=== PATIENT | female | born 1965 | race Caucasian/White ===

== ENCOUNTER 2016-10-14 17:12 | Inpatient (IN) | payer OTHER, MEDICARE ==
[~2016-10-14] VITALS: Ht 162.6 cm; Wt 84.8 kg
[~2016-10-14 17:12] MED LIST: ALLOPURINOL300 MG PO; ASPIR 8181 MG PO; DILAUDID4 MG PO; FOLIC ACID 1 MG PO; GILENYA0.5 MG PO; KLOR-CON M1010 MEQ PO; LEVOTHYROXIN0.088 MG PO; LISINOPRIL HCTZ1 TAB PO; MAGNESIUM OXID400 MG PO; PRISTIQ 50MG50 MG PO; PROTONIX 40MG T40 MG PO; VALACYCLOVIR1 GM PO; VESICARE 5MG5 MG PO; VITAB121000 PO; ZOFRAN4 M1 PO; [UNRECOGNIZED DRUG - CODE] PO
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
--- NOTE | 2016-10-14 17:27 | NUR ---
PT TAKEN TO XRAY
--- NOTE | 2016-10-14 17:41 | NUR ---
PT BACK FROM XRAY IV EST. PT STATES PAIN IS TOLERABLE AT THIS TIME WIHT ONLY THE JOSI
--- NOTE | 2016-10-14 17:59 | RADIOLOGY REPORT ---
EXAMINATION: 1. XR TIBIA AND FIBULA, RIGHT 2. XR ANKLE, RIGHT CLINICAL INFORMATION: Pain after fall COMPARISON: None TECHNIQUE: 2 views of the right tibia/fibula and 2 views of the right ankle were obtained. FINDINGS: Comminuted fracture of the distal fibula with approximately 1 cm foreshortening. Comminuted fracture of the medial malleolus. The posterior malleolus appears intact. Complete obliteration of the ankle mortise with medial displacement of the tibia. Prominent soft tissue swelling and subcutaneous emphysema. IMPRESSION: Comminuted fractures of the distal tibia and fibula with discontinuity of the ankle mortise. Subcutaneous emphysema suggests an open fracture. Cross-sectional imaging will likely be required once stable.
--- NOTE | 2016-10-14 18:20 | NUR ---
PA AWAITING CALL BACK FROM [facility] AT THIS TIME PT AND FAMILY AWARE
--- NOTE | 2016-10-14 18:39 | NUR ---
PTS LASHELL: [phone]
--- NOTE | 2016-10-14 18:45 | NUR ---
COUNSIOUS SEDATION STARTED SEE FLOW SHEET
[2016-10-14 19:19] LABS: ABSOLUTE BASOPHIL COUNT 0 /CUMM (0.0-0.2); ABSOLUTE EOSINOPHIL COUNT 0.1 /CUMM (0.0-0.7); ABSOLUTE GRANULOCYTE CT 6.7 /CUMM (1.4-6.5); ABSOLUTE LYMPH COUNT 0.2 /CUMM (1.2-3.4); ABSOLUTE MONOCYTE COUNT 0.6 /CUMM (0.10-0.60); BASOPHIL % 0 % (0.0-2.0); EOSINOPHIL % 0.7 % (0-5); GRANULOCYTE % 89.1 % (42.2-75.2); HEMATOCRIT 35.2 % (37-47); MEAN CORPUSCULAR HGB 32.4 PG (27.0-31.0); MEAN CORPUSCULAR HGB CONC 34.1 G/DL (33.0-37.0); MEAN CORPUSCULAR VOLUME 94.8 FL (81.0-99.0); MEAN PLATELET VOLUME 6.4 FL (7.4-10.4); PLATELET COUNT 207 /CUMM (130-400); RBC DISTRIBUTION WIDTH 14.3 % (11.5-14.5); RED BLOOD CELL CT 3.71 /CUMM (4.20-5.40); WHITE BLOOD CELL COUNT 7.6 /CUMM (4.8-10.8)
--- NOTE | 2016-10-14 19:21 | NUR ---
XRAY AT BEDSIDE
[2016-10-14 19:31] LABS: PT 9.7 SEC (9.4-12.5); PTT 27 SEC (25-37)
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
--- NOTE | 2016-10-14 19:48 | NUR ---
PT TAKEN TO OR.
--- NOTE | 2016-10-14 19:51 | RADIOLOGY REPORT ---
EXAMINATION: XR PORTABLE CHEST CLINICAL INFORMATION: Preop COMPARISON: None TECHNIQUE: Portable frontal view of the chest was obtained. 7:18 PM FINDINGS: No significant abnormality is noted involving the heart, lungs, mediastinum, bony thorax or soft tissues. IMPRESSION: No acute abnormality the chest.
--- NOTE | 2016-10-14 22:46 | Operative Report ---
Operative/Inv Procedure Report Surgery Date: 10/14/16 Name of Procedure: Irrigation and debridement of right ankle open fracture dislocation. Open reduction internal fixation right bimalleolar fracture and syndesmotic fixation Pre-Operative Diagnosis: Open fracture dislocation right ankle Post-Operative Diagnosis: Open fracture dislocation right ankle Estimated Blood Loss: less than 50ml Surgeon/Patents Examiner: RAFI KHAN,BRIGHT Blank Anesthesia: laryngeal mask airway Operative/Procedure Note Note: Patient was brought to the operating room and given a general anesthetic. She did receive 2 g of Kefzol antibiotics. A tourniquet was placed around her right upper thigh and a bump was placed on the right hip. Right leg was then prepped and draped in usual sterile fashion. The leg was exsanguinated tourniquet inflated to [address] for 90 minutes. Starting on the lateral side and incision was made over the fracture site the fracture was reduced and a one third tibial plate was affixed to the fracture on the lateral side. I was unable to use a lag screw secondary to the configuration of the fracture. There was some comminution. Intraoperative fluoroscopic pictures showed that the fibula was well reduced. An incision was then made over the medial malleolus this is where she had a small open puncture wound from the fracture site. The wound edges were debrided thoroughly pulsed irrigation lavage was carried out. The medial malleolus was cleared of debris and then reduced anatomically. Using the 40 cannulated screw set 2 K wires were placed in parallel into the medial malleolus reducing it anatomically. The appropriate drill was used and the appropriate length screws were used and under fluoroscopic pictures and showed that the mortise and the medial malleolus were perfectly reduced. I left one hole on the plate laterally and put a syndesmotic screw using 3 cortices with a long cortical screw. This was 1.5 cm above the joint line. At the end the procedure fluoroscopic pictures showed an anatomic ankle reduction thorough irrigation was carried out of both wounds the wounds were closed in a layered fashion a splint was placed on the ankle and the patient was sent back to recovery room in stable condition complications and the dictation by Dr. Godfrey thank you all instrument counts and final counts of supplies were normal.
--- NOTE | 2016-10-14 23:13 | Admission Core Measures ---
Admission Lab Results I reviewed the following labs: Laboratory Tests 10/15 1911 Chemistry Sodium (137 - 145 mmol/L) 140 Potassium (3.5 - 5.1 mmol/L) 3.7 Chloride (98 - 107 mmol/L) 104 Carbon Dioxide (22 - 30 mmol/L) 25 Anion Gap (5 - 16) 11 BUN (7 - 17 mg/dL) 24 H Creatinine (0.5 - 1.0 mg/dL) 1.0 Estimated GFR (>60 ml/min) 58 L BUN/Creatinine Ratio (7 - 25 %) 24.0 Glucose (65 - 99 mg/dL) 102 H Calcium (8.4 - 10.2 mg/dL) 8.9 Total Bilirubin (0.2 - 1.3 mg/dL) 0.7 AST (14 - 36 U/L) 24 ALT (9 - 52 U/L) 43 Alkaline Phosphatase (<127 U/L) 80 Total Protein (6.3 - 8.2 g/dL) 6.6 Albumin (3.5 - 5.0 g/dL) 4.1 Globulin (1.9 - 4.2 gm/dL) 2.5 Albumin/Globulin Ratio (1.1 - 2.2 %) 1.6 Coagulation PT (9.4 - 12.5 SEC) 9.7 INR (0.90 - 1.19) 0.92 APTT (25 - 37 SEC) 27 Hematology CBC w Diff NO MAN DIFF REQ WBC (4.8 - 10.8 /CUMM) 7.6 RBC (4.20 - 5.40 /CUMM) 3.71 L Hgb (12.0 - 16.0 G/DL) 12.0 Hct (37 - 47 %) 35.2 L MCV (81.0 - 99.0 FL) 94.8 MCH (27.0 - 31.0 PG) 32.4 H RDW (11.5 - 14.5 %) 14.3 Plt Count (130 - 400 /CUMM) 207 MPV (7.4 - 10.4 FL) 6.4 L Gran % (42.2 - 75.2 %) 89.1 H Lymphocytes % (20.5 - 51.1 %) 2.2 L Monocytes % (1.7 - 9.3 %) 8.0 Eosinophils % (0 - 5 %) 0.7 Basophils % (0.0 - 2.0 %) 0 L Absolute Granulocytes (1.4 - 6.5 /CUMM) 6.7 H Absolute Lymphocytes (1.2 - 3.4 /CUMM) 0.2 L Absolute Monocytes (0.10 - 0.60 /CUMM) 0.6 Absolute Eosinophils (0.0 - 0.7 /CUMM) 0.1 Absolute Basophils (0.0 - 0.2 /CUMM) 0 PUBS MCHC (33.0 - 37.0 G/DL) 34.1 Admission Meds I reviewed the following Meds: Current Medications Sig/Marylu Start time Last Medication Dose Stop Time Status Admin Allopurinol 300 MG DAILY 10/15 1000 UNVr (Zyloprim) Aspirin Buffered 162 MG DAILY 10/15 1000 UNVr (Ecotrin) Cefazolin Sodium 2 GM IQ8 10/15 0430 UNVr (Kefzol) 10/16 1629 N/A 1 UNIT (No Carrier) Cholecalciferol 400 IU DAILY 10/15 1000 UNVr (Vitamin D) Cyanocobalamin 1,000 MCG BID 10/15 1000 UNVr (Vitamin B12) Dextrose/Sodium 1,000 ML .Q10H 10/14 2300 UNVr Chloride (D5W-1/2 Normal Saline 1000ML) Folic Acid 1 MG DAILY 10/15 1000 UNVr (Folic Acid) Hydrochlorothiazide 25 MG DAILY 10/15 1000 UNVr (Hydrodiuril) Hydromorphone HCl 2 MG Q4P PRN 10/14 2315 UNVr (Dilaudid) Hydromorphone HCl 4 MG Q4P PRN 10/14 2315 UNVr (Dilaudid) Levothyroxine Sodium 0.088 MG DAILY AC 10/15 0700 UNVr (Synthroid) Lisinopril 20 MG DAILY 10/15 1000 UNVr (Prinivil) Magnesium Oxide 400 MG DAILY 10/15 1000 UNVr (Mag-Ox) Non-Formulary 0 SEE ADMIN CRITERIA 10/14 2315 UNVr Medication (NON FORMULARY) Omeprazole 40 MG DAILY AC 10/15 0700 UNVr (Prilosec) Ondansetron HCl 4 MG Q6P PRN 10/14 2300 UNVr (Zofran) Oxybutynin Chloride 5 MG DAILY 10/15 1000 UNVr (Ditropan) Potassium Chloride 40 MEQ DAILY 10/15 1000 UNVr (Klor) Sodium Chloride 500 ML BOLUS ONE 10/14 2300 AC 10/14 (Normal Saline 0.9%) 10/14 1657 [id number] Acute Coronary Syndrome Inclusion Criteria ACS Diagnosis No Inpatient Core Measures LDL Reminder: If No, please order W/I first 24hr of stay Congestive Heart Failure Inclusion Criteria CHF Diagnosis No Cerebrovascular accident Inclusion Criteria CVA/TIA Diagnosis No Inpatient Core Measures Bedside Swallow Eval Reminder: If BSE failed, place ST order Antithrombotic Reminder: Order Antithrombotic Medication by end of day 2 Antithrombotic Reminder: Document Reason Antithrombotic Not ordered by end of day 2 AFIB/Flutter Reminder: If Present, add to problem list AFIB/Flutter Reminder: Order Anticoag Medication for pts with AFIB/Flutter Atherosclerosis Reminder: If Present, add to problem list LDL Reminder: If No, please order W/I first 24hr of stay PT Order Reminder: If No, please order Venous thromboembolism Inpatient Core Measures VTE Risk Factors: Age > 40, No Risk Factors, Obesity, Surgery, Trauma major or lower ext No Mech VTE prophylaxis d/t No contraindications No VTE Pharm Prophylaxis d/t No contraindications Inclusion Criteria - Per Current guidelines, there needs to be overlap - treatment for the first 5 days of Warfarin therapy. - Parenteral Anticoagulation (IV or SC) needs to be - given along with Warfarin therapy. VTE Diagnosis No VTE Type NONE VTE Confirmed by (Test) NONE Problem List As ranked by this Provider includes Assessment & Plan 1. Dislocation, ankle HOME MEDS Home Med List Allopurinol 300 MG TAB 1 TAB PO DAILY UNKNOWN (Reported) Aspirin (Ecotrin) 81 MG TABLET.DR 2 TAB PO DAILY HEART HEALTH (Reported) CHOLECALCIFEROL (VITAMIN D3) (Vitamin D3) 5,000 UNIT TABLET 1 TAB PO DAILY SUPPLEMENT (Reported) Cyanocobalamin (Vitamin B-12) 1,000 MCG TABLET 1 TAB PO BID SUPPLEMENT ( Reported) FINGOLIMOD HCL (Gilenya) 0.5 MG CAPSULE 1 CAP PO DAILY MS (Reported) Folic Acid 1 MG TABLET 1 TAB PO DAILY FOLIC ACID SUPPLEMENT (Reported) Hydromorphone Hydrochloride (Dilaudid) 4 MG TAB 1 TAB PO Q4-6 PRN PAIN Levothyroxine Sodium (Levothyroxine) 0.088 MG TAB 1 TAB PO DAILY THYROID ( Reported) LISINOPRIL/HYDROCHLOROTHIAZIDE (Lisinopril-Hctz 20-25 MG Tab) 20 MG-25 MG TABLET 1 TAB PO DAILY BLOOD PRESSURE (Reported) Magnesium Oxide 400 MG TABLET 1 TAB PO DAILY SUPPLEMENT (Reported) Ondansetron (Zofran Odt) 4 MG TAB.RAPDIS 1 TAB PO Q4-6 PRN NAUSEA Pantoprazole Sodium (Protonix) 40 MG TABLET.DR 1 TAB PO DAILY GI (Reported) Potassium Chloride (Klor-Con M10) 10 MEQ TAB.ER.PRT 1 TAB PO BID SUPPLEMENT ( Reported) Solifenacin Succinate (Vesicare) 5 MG TABLET 1 TAB PO DAILY UNKNOWN (Reported ) VALACYCLOVIR HCL (Valacyclovir) 1 GM TAB 1 TAB PO TID HERPES ZOSTER Discontinued Medications Desvenlafaxine Succinate (Pristiq ER) 50 MG TAB.ER.24H 1 TAB PO EOD MENTAL HEALTH (Reported) Discontinued reason: Pt Decision, not taking
[2016-10-15 00:08] VITALS: BP 128/90
[2016-10-15 02:01] VITALS: BP 108/58
[2016-10-15 04:15] VITALS: BP 98/64
--- NOTE | 2016-10-15 07:31 | PN- Orthopedic ---
Subjective Subjective: Awake, alert No complaints this morning Pain is well controlled with IV tylenol Urinating without difficulty Has not been out of bed yet Objective Vital Signs and I&Os Vital Signs Date Time Temp Pulse Resp B/P B/P Pulse O2 O2 Flow FiO2 Mean Ox Delivery Rate 10/15 0415 97.6 76 18 98/64 97 Nasal Cannula 10/15 0201 97.4 92 18 108/58 97 / 0008 97.6 92 18 128/90 96 Nasal Cannula 10/14 1947 99.1 100 18 132/67 98 Room Air 10/14 1929 99.1 96 18 140/73 99 Room Air 10/14 1900 98.4 102 18 129/74 100 Nasal 2.0L Cannula 10/14 1845 105 18 131/80 98 Nasal 2.0L Cannula 10/14 1839 98.7 102 18 121/60 100 Nasal 2.0L Cannula 10/14 1715 106 20 147/66 99 Room Air Intake & Output 10/15 0800 10/15 0000 10/14 1600 10/14 0800 10/14 0000 10/13 1600 Intake Total 1040 30 Output Total 550 Balance 490 30 Intake, IV 800 Intake, Oral 240 30 Output, Urine 550 Patient 187 lb 187 lb Weight Weight Reported by Patient Measurement Method Physical Exam: afebrile SBP 98 this morning - no dizziness or lightheadedness All other vss General: alert and oriented times three Chest: clear anteriorly bilaterally, RRR Abd: soft, good bs Ext: lle - WNL rle - toes cool, good cap refill, positive sensate, the rest of the lower leg is wrapped so unable to examine but positive sensate, dressing clean and dry Current Medications: Current Medications Sig/Marylu Start time Last Medication Dose Route Stop Time Status Admin Acetaminophen 1,000 MG Q6H 10/15 0515 AC 10/15 N/A 1 UNIT IV 10/15 2322 0523 Allopurinol 300 MG DAILY 10/15 1000 AC PO Aspirin Buffered 162 MG DAILY 10/15 1000 AC PO Cefazolin Sodium 2 GM Q8H 10/15 0430 AC 10/15 N/A 1 UNIT IV 10/16 1259 0408 Cholecalciferol 400 IU DAILY 10/15 1000 AC PO Cyanocobalamin 1,000 MCG BID 10/15 1000 AC PO Dextrose/Sodium 1,000 ML .Q10H 10/14 2300 AC 10/14 Chloride IV 2357 Etomidate 5 MG ONCE ONE 10/14 1914 DC 10/14 IV 10/14 191 1850 Etomidate 0 .STK-MED ONE 10/14 1828 DC IV Etomidate 15 MG ONCE ONE 10/14 1815 DC 10/14 IV 10/14 181 1848 Folic Acid 1 MG DAILY 10/15 1000 AC PO Hydrochlorothiazide 25 MG DAILY 10/15 1000 AC PO Hydromorphone HCl 2 MG Q4P PRN 10/14 2315 AC PO Hydromorphone HCl 4 MG Q4P PRN 10/14 2315 AC PO Ibuprofen 800 MG ONCE ONE 10/14 1730 DC 10/14 PO 10/14 1731 1718 Ibuprofen 0 .STK-MED ONE 10/14 172 DC PO Levothyroxine Sodium 0.088 MG DAILY AC 10/15 0700 AC 10/15 PO 0524 Lisinopril 20 MG DAILY 10/15 1000 AC PO Magnesium Oxide 400 MG DAILY 10/15 1000 AC PO Morphine Sulfate 4 MG ONCE ONE 10/14 1914 DC 10/14 IV 10/14 191 1850 Morphine Sulfate 0 .STK-MED ONE 10/14 185 DC .ROUTE Non-Formulary 0 SEE ADMIN CRITERIA 10/14 2314 UNV Medication ANY Omeprazole 40 MG DAILY AC 10/15 0700 AC 10/15 PO 0524 Ondansetron HCl 4 MG Q6P PRN 10/14 2300 AC 10/14 IV 2356 Oxybutynin Chloride 5 MG DAILY 10/15 1000 AC PO Potassium Chloride 40 MEQ DAILY 10/15 1000 AC PO Sodium Chloride 500 ML BOLUS ONE 10/14 2299 DC 10/14 IV 10/14 2359 2257 Assessment/Plan Assessment/Plan 50 yo female s/p R ankle orif plan is for non weight bear to RLE PT pain management dc ivf asa 162mg po daily ancef for 5 doses post op for ppx - contaminated wound Core Measures/Miscellaneous Venous Thromboembolism VTE Risk Factors: Age > 40, Surgery VTE Contraindications: No Contraindications VTE Diagnosis: No VTE Type: NONE VTE Confirmed by (Test): NONE Beta Staci Is Beta Staci a Home Med? No Antibiotics Is Patient on Antibiotics? Yes If Yes: prophylaxis
--- NOTE | 2016-10-15 12:49 | RADIOLOGY REPORT ---
EXAMINATION: INTRAOPERATIVE FLUOROSCOPY AND SPOT FILMS CLINICAL INFORMATION: Open reduction internal fixation of right ankle fracture. COMPARISON: Right ankle films dated 10/14/2016. TECHNIQUE/FINDINGS: Intraoperative fluoroscopy was provided for the performance of an open reduction internal fixation of a comminuted distal tibial and fibular fracture. 7 spot films were acquired and are archived in PACS for review. Plate and screw fixation of distal fibular fracture and partially threaded screw fixation of medial malleolar fracture are documented at various stages. Final images demonstrate anatomic alignment of the tibial and fibular fractures. IMPRESSION: Anatomic alignment status post open reduction internal fixation of right tibial and fibular fractures.
[2016-10-15 15:21] VITALS: BP 110/68
--- NOTE | 2016-10-15 17:56 | PN- Orthopedic ---
Subjective Subjective: PATIENT POD#1 s/p right ankle ORIF and Iand d for open fracture dislocation doing well has some cervical stiffness from her fall.otherwise doing well. Objective Vital Signs and I&Os Vital Signs Date Time Temp Pulse Resp B/P B/P Pulse O2 O2 Flow FiO2 Mean Ox Delivery Rate / 1521 97.8 96 20 110/68 95 05/ 1316 98 Room Air 05/ 0916 98 Room Air 05/ 0837 76 98/64 05/ 0415 97.6 76 18 98/64 97 Nasal Cannula / 0201 97.4 92 18 108/58 97 05/ 0008 97.6 92 18 128/90 96 Nasal Cannula / 1947 99.1 100 18 132/67 98 Room Air / 1929 99.1 96 18 140/73 99 Room Air / 1900 98.4 102 18 129/74 100 Nasal 2.0L Cannula / 1845 105 18 131/80 98 Nasal 2.0L Cannula 10/14 1839 98.7 102 18 121/60 100 Nasal 2.0L Cannula Intake & Output 05/ 1600 05/04 0800 05/04 0000 05/03 1600 05/ 0800 05/03 0000 Intake Total 760 1040 30 Output Total 650 550 Balance 110 490 30 Intake, IV 160 800 Intake, Oral 600 240 30 Output, Urine 650 550 Patient 187 lb 187 lb Weight Weight Reported by Patient Measurement Method Physical Exam Extremities: in splint dry intact neuro intact toes mobile Assessment/Plan Assessment/Plan patient doing well needs PT continue antibiotics non weightbearing on the right foot and ankle x 6 weeks Core Measures/Miscellaneous Venous Thromboembolism VTE Risk Factors: Age > 40, Surgery VTE Contraindications: No Contraindications VTE Diagnosis: No VTE Type: NONE VTE Confirmed by (Test): NONE Beta Staci Is Beta Staci a Home Med? No Antibiotics Is Patient on Antibiotics? Yes If Yes: prophylaxis Attending MD Review Statement Attending Statement Attending MD Statement: examined this patient
[2016-10-15 21:40] VITALS: BP 116/60
--- NOTE | 2016-10-15 21:43 | NUR ---
PT ON SCHEDULED IV TYLENOL Q6 AND HAS ULTRAM ORDERED PRN. PT STATES SHE DOES NOT WANT ANY OPIODS OR IV PAIN MEDICATIONS DUE TO THE SIDE EFFECTS THAT HAPPEN TO HER WHEN GIVEN. PT RATES PAIN 6/10 TO NECK, L SHOULDER, AND R LEG. THIS RN EDUCATED PT ON PAIN REGIMEN AND ASKED PT IF SHE NEEDED SOMETHING IF WHAT WAS CURRENTLY ORDERED WAS NOT TAKING THE PAIN LEVEL OFF. PT STATES SHE IS OK AND IS GOING TO WAIT FOR THE SCHEDULED IV TYLENOL. WILL CONTINUE TO MONITOR.
[2016-10-16 06:34] VITALS: BP 114/70
[2016-10-16] MEDS ORDERED: RW (09:52)
[2016-10-16] MEDS ORDERED: TRAMADOL HCL50 M1 PO (09:55)
--- NOTE | 2016-10-16 10:19 | PN- Orthopedic ---
Subjective Subjective: Patient reporting increasing pain to bilateral upper extremities and neck s/p fall two days ago, has been ambulating with rolling walker, tolerates pt but is complaining of dizziness. Denies chest pain, shortness of breath and difficulty breathing. Denies nausea and vomitting. Objective Vital Signs and I&Os Vital Signs Date Time Temp Pulse Resp B/P B/P Pulse O2 O2 Flow FiO2 Mean Ox Delivery Rate 10/16 0844 80 116/70 10/16 0634 97.5 90 20 114/70 96 Room Air 10/15 2140 98.2 94 20 116/60 96 Room Air 10/15 1521 97.8 96 20 110/68 95 05/04 1316 98 Room Air Intake & Output 10/16 1600 10/16 0800 10/16 0000 10/15 1600 10/15 0800 10/15 0000 Intake Total 100 113 742 2885 30 Output Total 650 550 Balance 100 930 110 490 30 Intake, IV 100 230 160 800 Intake, Oral 700 600 240 30 Output, Urine 650 550 Patient 187 lb 187 lb Weight Weight Reported by Patient Measurement Method Physical Exam: General: Alert and oriented x3, no acute distress Cardiac: RRR, s1s2 Pulm: CTA bilaterally Extremities: Moves all extremities, distal sensation intact. Skin warm and well perfused. Toes mobile and cap refill brisk. Calves soft. Dressing intact and dry Assessment/Plan Assessment/Plan This is a 50 year old female, POD 2, s/p ORIF right ankle open fracture. PMH sig for htn, hypothyroid, ms, and gerd -PT cleared stairs today -Plan for discharge to home with home health services tomorrow am -Continue current pain regimen -Continue strict NWB with rolling walker, crutches were too difficult to use -Will d/w Dr. Godfrey Core Measures/Miscellaneous Venous Thromboembolism VTE Risk Factors: Age > 40, Surgery VTE Contraindications: No Contraindications VTE Diagnosis: No VTE Type: NONE VTE Confirmed by (Test): NONE Beta Staci Is Beta Staci a Home Med? No Antibiotics Is Patient on Antibiotics? Yes If Yes: prophylaxis
--- NOTE | 2016-10-16 10:21 | Patient Discharge Instructions ---
Discharge Instructions General Discharge Information You were seen/treated for: Right ankle open fracture You had these procedures: Open reduction with internal fixation of right ankle fracture Watch for these problems: Increasing pain, redness, warmth, swelling to right foot and ankle. Drainage of any type from incision. Fever greater than 101.5. Do not soak the wound: Yes Other wound care: Keep splint clean and dry Diet Continue normal diet: Yes Recommended Diet: Regular Activity Full Activity/No Limits: No Activity Self Limited: Yes Activity Limited to: No weight bearing Acute Coronary Syndrome Inclusion Criteria At DC or during hospital stay patient has or had the following: ACS DIAGNOSIS No Discharge Core Measures Meds if any: Prescribed or Continued at Discharge Meds if any: NOT Prescribed or Continued at Discharge Congestive Heart Failure Inclusion Criteria At DC or during hospital stay patient has or had the following: CHF DIAGNOSIS No Discharge Core Measures Meds if any: Prescribed or Continued at Discharge Meds if any: NOT Prescribed or Continued at Discharge Cerebrovascular accident Inclusion Criteria At DC or during hospital stay patient has or had the following: CVA/TIA Diagnosis No Discharge Core Measures Meds if any: Prescribed or Continued at Discharge Meds if any: NOT Prescribed or Continued at Discharge Venous thromboembolism Inclusion Criteria VTE Diagnosis No VTE Type NONE VTE Confirmed by (Test) NONE Discharge Core Measures - Per Current guidelines, there needs to be overlap - treatment for the first 5 days of Warfarin therapy. - If discharged on Warfarin prior to 5 days of - overlap therapy, the patient will need to be - assessed for post discharge needs including - *Post discharge parental anticoagulation - *Warfarin and/or parental anticoagulation education - *Follow up date to check INR post discharge At least 5 days overlap therapy as Inpatient No Meds if any: Prescribed or Continued at Discharge Note: Overlap Therapy is Warfarin and Anticoagulant Meds if any: NOT Prescribed or Continued at Discharge
--- NOTE | 2016-10-16 10:25 | Surgical Discharge Summary ---
Visit Information Visit Dates Admission Date: 10/14/16 Discharge Date: 10/17/16 History of Present Illness Chief Complaint: Right ankle pain s/p open fracture Medical History Blood Transfusion Hx: No Neurological: multiple sclerosis EENT: NONE Cardiovascular: hypertension, hyperlipidemia Respiratory: NONE Gastrointestinal: diverticulitis Hepatic: NONE Renal: BLADDER MESH Musculoskeletal: NONE Psychiatric: depression Endocrine: hypothyroidism Blood Disorders: NONE Cancer(s): NONE FENCE MAKER/Reproductive: NONE Other Medical Hx: Multiple sclerosis History of MRSA: No History of VRE: No History of CDIFF: No Isolation History: Standard Surgical History Pertinent Surgical History: non-contributory Psychosocial History Who Do You Live With? Spouse Services at Home: None What is Your Primary Language? Upper Sorbian Review of Systems: See H&P Hospital Course Course Attending Physician: BRIGHT GODFREY MD Primary Care Physician: AXEL KHAN,[facility] Course: Audrey was admitted to the hospital on 10/14/16 for an open reduction with internal fixation of an open right ankle fracture. She tolerated the procedure well and was transferred to a general surgical floor. There her vital signs remained stable and within normal limits and her neurovascular status remained intact. Her diet was advanced and tolerated and she voided spontaneously. Her pain was controlled with po pain medication. She was evaluated and treated by physical therapy and she was deemed appropriate for discharge to home with home health services. Complications: None Allergies: Coded Allergies: albumin human (From REBIF (WITH ALBUMIN)) (Severe, HIVES/SWELLING 10/14/16) dimethyl fumarate (From TECFIDERA) (Severe, FLU LIKE SYMPTOMS 10/14/16) glatiramer (copolymer 1) (From COPAXONE) (Severe, HIVES 10/14/16) interferon beta-1a (From REBIF (WITH ALBUMIN)) (Severe, HIVES/SWELLING 10/14/16) oxycodone (Severe, HIVES 10/14/16) Disposition Summary Disposition Principal Diagnosis: Right ankle fracture Additional Diagnosis: none Discharge Disposition: home health services Discharge Instructions General Discharge Information Code Status: Full Code Patient's Diet: Regular, advance as tolerated Patient's Activity: NWB to right ankle for 6 weeks Follow-Up Instructions/Appts: follow up with Dr. Godfrey in 1 week from date of surgery follow-up xray in 6 weeks Medications at Discharge Discharge Medications: Stop taking the following medications: Desvenlafaxine Succinate (Pristiq ER) 50 MG TAB.ER.24H ORAL Every other day Continue taking these medications: Pantoprazole Sodium (Protonix) 40 MG TABLET.DR 1 Tablet ORAL DAILY Aspirin (Ecotrin) 81 MG TABLET.DR 2 Tablet ORAL DAILY FINGOLIMOD HCL (Gilenya) 0.5 MG CAPSULE 1 Capsule ORAL DAILY LISINOPRIL/HYDROCHLOROTHIAZIDE (Lisinopril-Hctz 20-25 MG Tab) 20 MG-25 MG TABLET 1 Tablet ORAL DAILY Levothyroxine Sodium (Levothyroxine) 0.088 MG TAB 1 Tablet ORAL DAILY Solifenacin Succinate (Vesicare) 5 MG TABLET 1 Tablet ORAL DAILY Allopurinol (Allopurinol) 300 MG TAB 1 Tablet ORAL DAILY Folic Acid (Folic Acid) 1 MG TABLET 1 Tablet ORAL DAILY Cyanocobalamin (Vitamin B-12) 1,000 MCG TABLET 1 Tablet ORAL TWICE DAILY CHOLECALCIFEROL (VITAMIN D3) (Vitamin D3) 5,000 UNIT TABLET 1 Tablet ORAL DAILY Magnesium Oxide (Magnesium Oxide) 400 MG TABLET 1 Tablet ORAL DAILY Potassium Chloride (Klor-Con M10) 10 MEQ TAB.ER.PRT 1 Tablet ORAL TWICE DAILY Ondansetron (Zofran Odt) 4 MG TAB.RAPDIS 1 Tablet ORAL EVERY 4-6 HOURS as needed for NAUSEA Qty = 15 VALACYCLOVIR HCL (Valacyclovir) 1 GM TAB 1 Tablet ORAL THREE TIMES DAILY Days = 7 Hydromorphone Hydrochloride (Dilaudid) 4 MG TAB 1 Tablet ORAL EVERY 4-6 HOURS as needed for PAIN Qty = 15 Start taking the following new medications: Rolling Walker (Rolling Walker) UNIT Unit SEE INSTRUCTIONS Qty = 1 No Refills Instructions: Use as instructed. Tramadol HCl (Tramadol HCl) 50 MG TABLET 1 Tablet ORAL EVERY SIX HOURS NEEDED as needed for PAIN Qty = 30 No Refills Copies To: AXEL KHAN,RASHEED
[2016-10-16 13:46] VITALS: BP 140/72
[2016-10-16 21:47] VITALS: BP 106/50
[2016-10-17 06:51] VITALS: BP 100/62
--- NOTE | 2016-10-17 07:48 | PN- Orthopedic ---
See Addendum Subjective Subjective: Reports pain improves with tramadol. Cleared by PT for discharge to home yesterday. She is planning on staying with a friend for awhile. Out of bed with rolling walker. No dizziness. No shortness of breath. no chest pains. Reports baseline MS related paresthesias. Objective Vital Signs and I&Os Vital Signs Date Time Temp Pulse Resp B/P B/P Pulse O2 O2 Flow FiO2 Mean Ox Delivery Rate 10/17 0551 98.0 88 18 100/62 93 Room Air 10/16 2147 98.2 94 18 106/50 96 Room Air 10/16 1346 98.0 92 20 140/72 96 10/16 0844 80 116/70 Intake & Output 10/17 0000 10/16 1600 10/16 0810/16 0000 10/15 1600 Intake Total 150 700 650 100 930 760 Output Total 650 Balance 150 700 650 100 930 110 Intake, IV 50 100 230 160 Intake, Oral 150 700 600 700 600 Number 0 Bowel Movements Output, Urine 650 Physical Exam: General - alert and oriented x3, no acute distress Cardiac - s1s2. reg. Lungs - clear bilaterally extremities - warm bilaterally. right lower leg immobilized. toes fully mobile with brisk cap refill. sensation grossly intact and equal. dressing c/d/i. ice pack in place. Current Medications: Current Medications Sig/Marylu Start time Last Medication Dose Route Stop Time Status Admin Acetaminophen 650 MG Q4P PRN 10/15 1545 AC 10/17 PO 0543 Allopurinol 300 MG DAILY 10/15 1000 AC 10/16 PO 0842 Aspirin Buffered 162 MG DAILY 10/15 1000 AC 10/16 PO 0844 Cefazolin Sodium 2 GM Q8H 10/15 0430 DC 10/16 N/A 1 UNIT IV 10/16 1259 1240 Cholecalciferol 400 IU DAILY 10/15 1000 AC 10/16 PO 0842 Cyanocobalamin 1,000 MCG BID 10/15 1000 AC 10/16 PO 2037 Folic Acid 1 MG DAILY 10/15 1000 AC 10/16 PO 0844 Hydrochlorothiazide 25 MG DAILY 10/15 1000 AC 10/16 PO 0844 Ketorolac 15 MG Q8P PRN 10/16 0815 AC 10/16 Tromethamine IV 2342 Levothyroxine Sodium 0.088 MG DAILY AC 10/15 0700 AC 05 PO 0540 Lisinopril 20 MG DAILY 10/15 1000 AC 05 PO 0844 Magnesium Oxide 400 MG DAILY 10/15 1000 AC 05 PO 0844 Melatonin 5 MG AT BEDTIME 10/16 2200 AC 05 PO 2132 Omeprazole 40 MG DAILY AC 10/15 0700 AC 05 PO 0540 Ondansetron HCl 4 MG .STK-MED ONE 10/16 0752 DC IM 10/16 0753 Ondansetron HCl 4 MG Q6P PRN 10/14 2300 AC 10/16 IV 0756 Oxybutynin Chloride 5 MG DAILY 10/15 1000 AC 05 PO 0845 Patient Medication 1 ED .STK-MED ONE 10/16 1257 DC Teaching ED 10/16 1258 Potassium Chloride 40 MEQ DAILY 10/15 1000 AC 10/16 PO 0845 Tramadol HCl 50 MG Q4P PRN 10/15 1545 AC 10/16 PO 2037 Assessment/Plan Assessment/Plan This is a 50 year old female with hx of MS now POD#3, s/p ORIF right ankle open fracture pain controlled with tramadol cleared by PT for discharge to home (yesterday) rolling walker ready in her room VNS services arranged continue strict nwb with rolling walker d/c today with services will d/w Core Measures/Miscellaneous Venous Thromboembolism VTE Risk Factors: Age > 40, Surgery VTE Contraindications: No Contraindications VTE Diagnosis: No VTE Type: NONE VTE Confirmed by (Test): NONE Beta Staci Is Beta Staci a Home Med? No Antibiotics Is Patient on Antibiotics? Yes If Yes: prophylaxis
[2016-10-17 08:46] VITALS: BP 100/70
== END 2016-10-17 10:48 | disposition home health service (06) | DRG 494 ==
LOC: ERH 17:12 → ER-OR 17:43 → ERH 17:43 → PACUH 20:02 → 2NA 20:02 → PACUH 20:02 → CRI 22:56 → 2NA 23:53 → ENPENDDIS 10-17 07:56 → 2NA 10-17 10:48
PROVIDERS: Physician Assistant Medical; ADMIT Orthopaedic Surgery Sports Medicine
PROC: 0QSG04Z Reposition Right Tibia with Internal Fixation Device, Open Approach (ICD-10-PCS; principal; 2016-10-14)
PROC: 0QSJ04Z Reposition Right Fibula with Internal Fixation Device, Open Approach (ICD-10-PCS; principal; 2016-10-14)
PROC: 0QSGXZZ Reposition Right Tibia, External Approach (ICD-10-PCS; 2016-10-14)
PROC: 0QSJXZZ Reposition Right Fibula, External Approach (ICD-10-PCS; 2016-10-14)
DX: S82.841B Displaced bimalleolar fracture of right lower leg, initial encounter for open fracture type I or II (principal); G35 Multiple sclerosis; I10 Essential (primary) hypertension; M10.9 Gout, unspecified; W07.XXXA Fall from chair, initial encounter; Z91.81 History of falling; Y92.009 Unspecified place in unspecified non-institutional (private) residence as the place of occurrence of the external cause; Z79.82 Long term (current) use of aspirin; E78.5 Hyperlipidemia, unspecified; E03.9 Hypothyroidism, unspecified; F32.9 Major depressive disorder, single episode, unspecified
CPT/HCPCS: 2NAP; 73590-RT; 73600-RT; 73610-RT; 93005; 93010; 96374; 96375; 97116-GO; 97161-GP; 97530-GO; C1713; J0131; J0690; J1100; J1170; J2250; J2405; J3010; J3490; J7040; J7042

== ENCOUNTER 2016-11-28 11:05 | Emergency (ER) | payer OTHER ==
[~2016-11-28 11:05] MED LIST changes: +RW; +TRAMADOL HCL50 M1 PO
--- NOTE | 2016-11-28 12:33 | ED UPPER/LOWER EXTREMITY COMPL ---
History of Present Illness General Chief Complaint: Skin Rash/ Abcess Stated Complaint: RT LEG CELLULITIS Source: patient Exam Limitations: no limitations Vital Signs & Intake/Output Vital Signs & Intake/Output Vital Signs Date Time Temp Pulse Resp B/P B/P Pulse O2 O2 Flow FiO2 Mean Ox Delivery Rate 11/28 1331 97.8 90 17 110/68 98 Room Air 11/28 1229 Room Air 11/28 1110 97.6 85 16 107/75 98 Room Air Allergies Coded Allergies: albumin human (From REBIF (WITH ALBUMIN)) (Severe, HIVES/SWELLING 10/14/16) dimethyl fumarate (From TECFIDERA) (Severe, FLU LIKE SYMPTOMS 10/14/16) glatiramer (copolymer 1) (From COPAXONE) (Severe, HIVES 10/14/16) interferon beta-1a (From REBIF (WITH ALBUMIN)) (Severe, HIVES/SWELLING 10/14/16) oxycodone (Severe, HIVES 10/14/16) Reconcile Medications Allopurinol 300 MG TAB 1 TAB PO DAILY UNKNOWN (Reported) Aspirin (Ecotrin) 81 MG TABLET.DR 2 TAB PO DAILY HEART HEALTH (Reported) CHOLECALCIFEROL (VITAMIN D3) (Vitamin D3) 5,000 UNIT TABLET 1 TAB PO DAILY SUPPLEMENT (Reported) Cyanocobalamin (Vitamin B-12) 1,000 MCG TABLET 1 TAB PO BID SUPPLEMENT ( Reported) FINGOLIMOD HCL (Gilenya) 0.5 MG CAPSULE 1 CAP PO DAILY MS (Reported) Folic Acid 1 MG TABLET 1 TAB PO DAILY FOLIC ACID SUPPLEMENT (Reported) Hydromorphone Hydrochloride (Dilaudid) 4 MG TAB 1 TAB PO Q4-6 PRN PAIN Levothyroxine Sodium (Levothyroxine) 0.088 MG TAB 1 TAB PO DAILY THYROID ( Reported) LISINOPRIL/HYDROCHLOROTHIAZIDE (Lisinopril-Hctz 20-25 MG Tab) 20 MG-25 MG TABLET 1 TAB PO DAILY BLOOD PRESSURE (Reported) Magnesium Oxide 400 MG TABLET 1 TAB PO DAILY SUPPLEMENT (Reported) Ondansetron (Zofran Odt) 4 MG TAB.RAPDIS 1 TAB PO Q4-6 PRN NAUSEA Pantoprazole Sodium (Protonix) 40 MG TABLET.DR 1 TAB PO DAILY GI (Reported) Potassium Chloride (Klor-Con M10) 10 MEQ TAB.ER.PRT 1 TAB PO BID SUPPLEMENT ( Reported) Solifenacin Succinate (Vesicare) 5 MG TABLET 1 TAB PO DAILY UNKNOWN (Reported ) Tramadol HCl 50 MG TABLET 1 TAB PO Q6P PRN PAIN VALACYCLOVIR HCL (Valacyclovir) 1 GM TAB 1 TAB PO TID HERPES ZOSTER Triage Note: PT TO ED WITH RT LOWER LEG ?CELLULITIS. STATES SHE BROKE HER LEG OVER A MONTH AGO AND HAS A WOUND TO THAT AREA. STATES SHE SEES DR GARZA AT THE [facility]. STATES HER VISITING NURSE SUGGESTED FOR HER TO COME AND GET CHECKED OUT. Triage Nurses Notes Reviewed? yes HPI: 50F PMH HTN WITH RECENT ORIF OF RIGHT ANKLE FOR TIB/FIB FRACTURE, WITH LEFT LOWER EXTREMITY WOUND AT SURGERY SITE, WITH 2 DAYS OF WORSENING PAIN AND ERYTHEMA SURROUNDING THE WOUND. DENIES FEVER, CHILLS, LEG SWELLING,CHEST PAIN, SOB. NO DISCHARGE FROM WOUND. Past History Travel History Traveled to [place] past 21 day No Medical History Any Pertinent Medical History? see below for history Neurological: multiple sclerosis EENT: NONE Cardiovascular: hypertension, hyperlipidemia Respiratory: NONE Gastrointestinal: diverticulitis Hepatic: NONE Renal: BLADDER MESH Musculoskeletal: NONE Psychiatric: depression Endocrine: hypothyroidism Blood Disorders: NONE Cancer(s): NONE WEB MARKETING STRATEGIST/Reproductive: NONE Other Medical Hx: Multiple sclerosis History of MRSA: No History of VRE: No History of CDIFF: No Surgical History Surgical History: non-contributory Psychosocial History Who do you live with Spouse Services at Home None What is your primary language Maori Tobacco Use: Never used Family History Hx Contributory? No Review of Systems Review of Systems Constitutional: Reports: no symptoms. EENTM: Reports: no symptoms. Respiratory: Reports: no symptoms. Cardiovascular: Reports: no symptoms. Gastrointestinal/Abdominal: Reports: no symptoms. Genitourinary: Reports: no symptoms. Musculoskeletal: Reports: see HPI. Skin: Reports: see HPI. Neurological/Psychological: Reports: no symptoms. Hematologic/Endocrine: Reports: no symptoms. Immunological: Reports: no symptoms. All Other Systems: Reviewed and Negative Physical Exam Physical Exam General Appearance: well developed/nourished, no apparent distress, alert, awake , mild distress Head: atraumatic, normal appearance Ears, Nose, Throat: normal pharynx, normal ENT inspection Neck: normal inspection, supple Cardiovascular/Respiratory: regular rate/rhythm Gastrointestinal: NORMAL Back: normal inspection, normal range of motion Leg Left: normal range of motion, normal inspection Leg Right: 2CM ULCER WITH ESCHAR AND SURROUNDING ERYTHEMA EXTENDING 4CM AWAY FROM BORDERS, NO DRAINAGE, EXQUISITE TENDERNESS PRESENT, NO LEG SWELLING Progress Differential Diagnosis: arterial insufficiency, cellulitis, CHF, compartment syndrome, contusion, dislocation, DVT, fracture, gout, septic arthritis, sprain, tendon injury Plan of Care: Orders Procedure Date/time Status BLOOD CULTURE 11/28 1242 Active BLOOD CULTURE 11/28 1206 Active CBC WITHOUT DIFFERENTIAL 11/28 1206 Complete BASIC ELECTROLYTES PLUS BUN&CR 11/28 1206 Complete Current Medications Sig/Marylu Start time Last Medication Dose Stop Time Status Admin Lactobacillus 1 CAP ONCE ONE 11/28 1330 UNVr Acidophilus 11/28 1331 (Probiotic) Laboratory Tests 11/28/16 1218: Anion Gap 12, Estimated GFR > 60, BUN/Creatinine Ratio 21.1, CBC w Diff NO MAN DIFF REQ, RBC 3.62 L, MCV 93.9, MCH 31.8 H, RDW 14.0, MPV 6.7 L, Gran % 81.3 H, Lymphocytes % 5.2 L, Monocytes % 10.8 H, Eosinophils % 2.5, Basophils % 0.2 , Absolute Granulocytes 5.0, Absolute Lymphocytes 0.3 L, Absolute Monocytes 0.7 H, Absolute Eosinophils 0.2, Absolute Basophils 0, PUBS MCHC 33.9 Microbiology 11/28 1238 BLOOD: Blood Culture - RECD 11/28 1218 BLOOD: Blood Culture - RECD 11/28 1209 BLOOD: Blood Culture - CAN Cancelled: Cancelled via OE: SHOULD BE 2ND ANKLE X-RAY SHOWS NORMAL HARDWARE. WBC 6.2. AFEBRILE, NO SIGNS OF SYSTEMIC INFECTION. WILL START AUGMENTIN FOR WORSENING ERYTHEMA AND PAIN DUE TO CELLULITIS SURROUNDING ULCER. WILL FOLLOW UP IN WOUND CARE CENTER ON Wednesday. (ALBERTO KHAN,SONAM) Diagnostic Imaging: Viewed by Me: Radiology Read. Discussed w/RAD: Radiology Read. Radiology Impression: PATIENT: YOSVANY MCARTHUR PRESENT AGE: 50 PATIENT ACCOUNT NO: [id number] : 63 LOCATION: [facility] ORDERING PHYSICIAN: SONAM DOMINGUEZ MD SERVICE DATE: 11/28/16-1206 EXAM TYPE : RAD - XRY-TWO VIEW RIGHT ANKLE EXAMINATION: XR ANKLE, RIGHT CLINICAL INFORMATION: Cellulitis right ankle. Question hardware infection. COMPARISON: . TECHNIQUE: AP, lateral, and mortise views of the right ankle. FINDINGS: Surgical hardware remains in stable position with anatomic alignment of the right ankle. 2 surgical screws transfix the fracture the medial malleolus with a long sideplate and multiple screws present along the comminuted fracture of the distal fibula. Alignment the ankle mortise is anatomic. No hardware complication is seen. Early infection would not be visible on the plain films. There is a small joint effusion. IMPRESSION: Stable anatomic alignment status post ORIF. No hardware complication demonstrated. Early hardware infection would not be seen on plain film. Departure Departure Time of Disposition: 1330 Disposition: HOME OR SELF CARE Condition: Stable Clinical Impression Primary Impression: Cellulitis of right lower extremity Secondary Impressions: Ankle fracture, right, Chronic ulcer of right lower extremity Referrals: DEBBIE KHAN,HARSHA REYNA MD,RASHEED (PCP/Family) Additional Instructions: KEEP LEG ELEVATED. TYLENOL PRN FOR PAIN. CONTINUE AUGMENTIN FOR 7 DAYS. FOLLOW UP WITH WOUND CARE CENTER ON WEDNESDAY. Departure Forms: Customer Survey General Discharge Information Prescriptions: Current Visit Scripts Amoxicillin/Clavulanate Potass (Amox-Clav 875-125 MG Tablet) 1 TAB PO BID #20 TAB Lactobacillus Acidophilus (Probiotic) 1 CAP PO TID #30 CAP
[2016-11-28 12:38] LABS: ABSOLUTE BASOPHIL COUNT 0 /CUMM (0.0-0.2); ABSOLUTE EOSINOPHIL COUNT 0.2 /CUMM (0.0-0.7); ABSOLUTE LYMPH COUNT 0.3 /CUMM (1.2-3.4); ABSOLUTE MONOCYTE COUNT 0.7 /CUMM (0.10-0.60); BASOPHIL % 0.2 % (0.0-2.0); EOSINOPHIL % 2.5 % (0-5); GRANULOCYTE % 81.3 % (42.2-75.2); MEAN CORPUSCULAR HGB 31.8 PG (27.0-31.0); MEAN CORPUSCULAR HGB CONC 33.9 G/DL (33.0-37.0); MEAN CORPUSCULAR VOLUME 93.9 FL (81.0-99.0); MEAN PLATELET VOLUME 6.7 FL (7.4-10.4); PLATELET COUNT 221 /CUMM (130-400); RED BLOOD CELL CT 3.62 /CUMM (4.20-5.40); WHITE BLOOD CELL COUNT 6.2 /CUMM (4.8-10.8)
--- NOTE | 2016-11-28 13:22 | RADIOLOGY REPORT ---
EXAMINATION: XR ANKLE, RIGHT CLINICAL INFORMATION: Cellulitis right ankle. Question hardware infection. COMPARISON: 10/14/16. TECHNIQUE: AP, lateral, and mortise views of the right ankle. FINDINGS: Surgical hardware remains in stable position with anatomic alignment of the right ankle. 2 surgical screws transfix the fracture the medial malleolus with a long sideplate and multiple screws present along the comminuted fracture of the distal fibula. Alignment the ankle mortise is anatomic. No hardware complication is seen. Early infection would not be visible on the plain films. There is a small joint effusion. IMPRESSION: Stable anatomic alignment status post ORIF. No hardware complication demonstrated. Early hardware infection would not be seen on plain film.
[2016-11-28 13:31] VITALS: BP 110/68
[2016-11-28] MEDS ORDERED: PROBIOTIC1 EACH PO (13:33)
[2016-11-28] MEDS ORDERED: AMOX-CLAV 875-1 EACH PO (13:33)
[2016-11-28] MEDS ORDERED: DUEXIS 800-26.1 EACH PO (13:57)
[2016-11-28] MEDS ORDERED: ALLOPURINOL300 M1 PO (13:58)
[2016-11-28] MEDS ORDERED: VITAMIN D31000 UNI1 PO (13:58)
[2016-11-28] MEDS ORDERED: ASPIRIN81 M4 PO (13:58)
[2016-11-28] MEDS ORDERED: FOLIC ACID1 M1 PO (13:59)
[2016-11-28] MEDS ORDERED: GILENYA0.5 M1 PO (13:59)
[2016-11-28] MEDS ORDERED: LEVOTHYROXINE88 MCG PO (13:59)
[2016-11-28] MEDS ORDERED: POTASSIUM CHLO20 ME2 PO (14:00)
[2016-11-28] MEDS ORDERED: MAGNESIUM OXID400 M1 PO (14:00)
[2016-11-28] MEDS ORDERED: LISINOPRIL-HCT1 EAC1 PO (14:00)
[2016-11-28] MEDS ORDERED: TRAMADOL HCL50 M1 PO (14:01)
[2016-11-28] MEDS ORDERED: RANITIDINE HCL150 MG PO (14:01)
[2016-11-28] MEDS ORDERED: VESICARE5 M1 PO (14:01)
== END 2016-11-28 13:46 ==
LOC: ERH 11:05
PROVIDERS: Internal Medicine
DX: S82.891D Other fracture of right lower leg, subsequent encounter for closed fracture with routine healing (principal); L03.115 Cellulitis of right lower limb; L97.919 Non-pressure chronic ulcer of unspecified part of right lower leg with unspecified severity
CPT/HCPCS: 73600-RT; 82436; 87040; 96374

== ENCOUNTER 2018-03-02 00:51 | Observation (INO) | payer OTHER ==
[~2018-03-02] VITALS: Ht 160 cm; Wt 83.9 kg
[~2018-03-02 00:51] MED LIST changes: +ALLOPURINOL300 M1 PO; +AMOX-CLAV 875-1 EACH PO; +ASPIRIN81 M4 PO; +DUEXIS 800-26.1 EACH PO; +FOLIC ACID1 M1 PO; +GILENYA0.5 M1 PO; +KEFLEX500 M1 PO; +LEVOTHYROXINE88 MCG PO; +LISINOPRIL-HCT1 EAC1 PO; +MAGNESIUM OXID400 M1 PO; +MORPHINE SULFAT15 M4 PO; +MS CONTIN15 M2 PO; +NYSTATIN100000 UNI PO; +OXACILLIN2 GM/50 M1 IV; +OXYBUTYNIN CHLOR5 M3 PO; +POTASSIUM CHLO20 ME2 PO; +PROBIOTIC1 EACH PO; +RANITIDINE HCL150 MG PO; +VESICARE5 M1 PO; +VITAMIN D31000 UNI1 PO
--- NOTE | 2018-03-02 13:59 | Operative Report ---
Operative/Inv Procedure Report Surgery Date: 03/02/18 Name of Procedure: Right ankle arthroscopically assisted ankle arthrodesis Pre-Operative Diagnosis: Posttraumatic arthritis right ankle Post-Operative Diagnosis: Posttraumatic arthritis right tibiotalar joint Estimated Blood Loss: scant Surgeon/Director Of Cardiopulmonary Services: Elif KHAN,Sean TANNER Anesthesia: general endotracheal tube IV Fluids: See anesthesia record Implants: Arthrex 6.5 cannulated screws Drains: None Specimens: None Tourniquet: 120 minutes Complications: None Condition: Stable Operative Indication: Patient is a 52-year-old female with posttraumatic arthritis of the tibiotalar joint on the right ankle. She failed conservative treatment is indicated for surgical arthrodesis. The risks and benefits the procedure discussed with the patient detailed the office and she was to proceed. Skills that hand is necessary and provided by physician assistant spa director Tommy Robbins made with camera positioning and component assembly and limb retraction throughout the case. Operative/Procedure Note Note: Once informed consent was obtained and the correct limb was identified the patient brought to the operating placed on table supine position. Administration of general endotracheal anesthesia the patient's right thigh had a tourniquet placed in the right lip leg was placed in a leg bates for surgical arthroscopy of the ankle. The right leg was then prepped and draped in usual sterile fashion. To begin the procedure standard arthroscopic portals were made for ankle arthroscopy. The medial portal was made just medial to the tibialis anterior tendon what using a lena and spread technique. Lateral portal was made lateral to the extensor tendons with care to avoid the superficial peroneal nerve. Again the portal was made with a lena and spread technique. There are scope was introduced into the joint through the lateral portal and diagnostic arthroscopy was carried out. The tibiotalar joint had severe degenerative changes with complete cartilage loss of a good portion of the talus and tibia. Through the medial portal shaving device was and introduced into the joint. Loose debris was removed with a 4.2 incisor shaver. Once this was done diagnostic arthroscopy was again carried out with a 20 one-point exam of the ankle joint being performed. Next we then began denuding of the cartilage of both the talus and the tibia. With a combination of curettes and a high-speed bone cutting device the talar dome had all of its articular cartilage removed and a layer of subchondral bone was removed as well to get to bleeding healthy bone. There was significant sclerosis of the lateral talar dome. We are able to get the device posterior as well across and over the talar dome. This was done using a combination of both portals in order to improve her ankles. Once this was done we then turned our attention to the tibial plafond surface. Using curettes again and the shaving device we are able to remove all the articular cartilage down to bleeding subchondral bone. Anterior aspect of the distal tibia also was shaved down. Once we had adequately debrided all the bone and had what we felt were good bleeding surfaces for fusion we remove the instruments. A targeting device from Arthrex was then used to place a screw from the medial tibia across the joint. C-arm fluoroscopy P confirm position of the screw in the AP and lateral planes. Once this was done we then percutaneously placed a guidewire for 6.5 Arthrex screws from medial to lateral into the talar dome and from the lateral tibia into the talar dome as well. Fluoroscopy in the AP and lateral planes confirmed excellent positioning of both guidewires in the ankle was reduced and compressed in the guidewires were placed across the joint. Guidewire length was confirmed in both planes and a 50 mm screw was placed across the joint from medial to lateral after it had been overdrilled and a 45 mm cannulated screw was placed from lateral to medial after the guidewire had been overdrilled. Excellent compression was obtained finally a third screw was placed from medial to the anterior talar neck for final fixation purposes again screw position was confirmed in the AP and lateral planes with fluoroscopy. A 55 mm screw was placed across the guidewire without complication. Final x-rays confirmed excellent position of the screws with excellent length. Fusion position was at excellent. The instruments removed and the arthroscope portals were irrigated with sterile saline. The portals were then closed with 3-0 nylon interrupted sutures. The stab incision for the screw placements were also closed with 3-0 nylon interrupted sutures. Sterile dressing felt was applied and the patient was awakened taken recovery in stable condition.
--- NOTE | 2018-03-02 16:22 | Patient Discharge Instructions ---
Discharge Instructions General Discharge Information You were seen/treated for: Post-traumatic arthritis right ankle You had these procedures: Surgery Date: 03/02/18 Name of Procedure: Right ankle arthroscopically assisted ankle arthrodesis Watch for these problems: FEVER>101.3, INCREASED PAIN, REDNESS/SWELLING/DRAINAGE, SHORTNESS OF BREATH, CHEST PAINS, DIZZINESS Call Surgeon to remove: Stitches Other wound care: PER 'S INSTRUCTIONS Special Instructions: USE CRUTCHES TO AMBULATE. NON WEIGHT BEARING TO OPERATIVE LEG Diet Continue normal diet: Yes Recommended Diet: Regular Activity Full Activity/No Limits: No Activity Self Limited: Yes Activity Limited to: No weight bearing Other activity limits: USE CRUTCHES TO AMBULATE Acute Coronary Syndrome Inclusion Criteria At DC or during hospital stay patient has or had the following: ACS DIAGNOSIS No Discharge Core Measures Meds if any: Prescribed or Continued at Discharge Meds if any: NOT Prescribed or Continued at Discharge Congestive Heart Failure Inclusion Criteria At DC or during hospital stay patient has or had the following: CHF DIAGNOSIS No Discharge Core Measures Meds if any: Prescribed or Continued at Discharge Meds if any: NOT Prescribed or Continued at Discharge Cerebrovascular accident Inclusion Criteria At DC or during hospital stay patient has or had the following: CVA/TIA Diagnosis No Discharge Core Measures Meds if any: Prescribed or Continued at Discharge Meds if any: NOT Prescribed or Continued at Discharge Venous thromboembolism Inclusion Criteria VTE Diagnosis No VTE Type NONE VTE Confirmed by (Test) NONE Discharge Core Measures - Per Current guidelines, there needs to be overlap - treatment for the first 5 days of Warfarin therapy. - If discharged on Warfarin prior to 5 days of - overlap therapy, the patient will need to be - assessed for post discharge needs including - *Post discharge parental anticoagulation - *Warfarin and/or parental anticoagulation education - *Follow up date to check INR post discharge At least 5 days overlap therapy as Inpatient No Meds if any: Prescribed or Continued at Discharge Note: Overlap Therapy is Warfarin and Anticoagulant Meds if any: NOT Prescribed or Continued at Discharge
[2018-03-02] MEDS ORDERED: DOCUSATE SODIU100 M3 PO (16:23)
[2018-03-02] MEDS ORDERED: VICODIN 5-3001 EACH PO (16:23)
--- NOTE | 2018-03-02 16:28 | Surg Short-stay <48hrs Dis Sum ---
Visit Information Visit Dates Admission Date: 03/02/18 Discharge Date: 03/03/18 Surgical Short Stay DC Summary Admission Diagnosis: Post-traumatic arthritis right ankle Final Diagnosis: Post-traumatic arthritis right ankle Procedure(s): Surgery Date: 03/02/18 Name of Procedure: Right ankle arthroscopically assisted ankle arthrodesis Summary/Significant Findings: Electively scheduled right ankle arthroscopically assisted ankle arthrodesis on 03/02/18 by , for history of post-traumatic arthritis right ankle. Placed in observation status overnight due to uncontrolled pain and nausea. Seen and evulated by PT for crutch training, as she is non-weight bearing status after surgery. Discharged to home once pain controlled, tolerating a diet, and stable for discharge. Condition at Discharge: stable Discharge Disposition: home or self care Discharge instructions provided to patient/family: Yes Post discharge follow-up plan: 2 week follow up with non-weight bearing status Copies to: Madison KHAN,Vipul
--- NOTE | 2018-03-02 16:32 | PN- Orthopedic ---
Subjective Subjective: POST-OP NOTE Currently in PACU reporting ongoing pain and nausea. Not yet out of bed. Denies dizziness. No shortness of breath. No chest pains. Being placed in observation status overnight until she is tolerating food and pain is controlled. She states percocet makes her sick, but she can tolerate vicodin or ultram. Objective Vital Signs and I&Os pacu flowsheet reviewed. vss. Physical Exam: General - alert & oriented x 3. sleepy. no acute distress. Lungs - clear bilaterally. no w/r/r. Cardiac - s1s2. reg. Abdomen - soft. nontender. Extremities - warm bilaterally. right lower leg immobilized. calves soft and nontender. nvi. Current Medications: Current Medications Sig/Marylu Start time Last Medication Dose Route Stop Time Status Admin Acetaminophen 1,000 MG Q6P PRN 03/02 161 UNVr N/A 1 UNIT IV Allopurinol 300 MG DAILY 03/03 09 UNVr PO Aspirin Buffered 81 MG DAILY 03/03 900 UNVr PO Cefazolin Sodium 2,000 MG ONCE 03/02 0000 NR IV 03/02 2359 Cholecalciferol 2,000 IU DAILY 03/03 09 UNVr PO Dextrose/Sodium 1,000 ML Q10H 03/02 1630 UNVr Chloride IV Docusate Sodium 100 MG BID 03/02 2100 UNVr PO Famotidine 20 MG BID 03/02 2100 UNVr PO Fentanyl Citrate 0 .STK-MED ONE 03/02 1017 DC .ROUTE Folic Acid 1 MG DAILY 03/03 0900 UNVr PO Hydrochlorothiazide 12.5 MG DAILY 03/03 09 UNVr PO Hydrocodone Bitart/ 1 TAB Q4-6 PRN PRN 03/02 161 UNVr Acetaminophen PO Hydrocodone Bitart/ 2 TAB Q4-6 PRN PRN 03/02 1615 UNVr Acetaminophen PO Hydromorphone HCl 0 .STK-MED ONE 03/02 1321 DC .ROUTE Levothyroxine Sodium 0.088 MG DAILY AC 03/03 0700 UNVr PO Lisinopril 10 MG DAILY 03/03 0900 UNVr PO Magnesium Oxide 400 MG BID 03/02 2100 UNVr PO Metoclopramide HCl 0 .STK-MED ONE 03/02 1419 DC .ROUTE Midazolam HCl 0 .STK-MED ONE 03/02 1017 DC .ROUTE Midazolam HCl 0 .STK-MED ONE 03/02 0949 DC .ROUTE Morphine Sulfate 2 MG Q4-6 PRN PRN 03/02 1630 UNVr IV Ondansetron HCl 4 MG Q6P PRN 03/02 1615 UNVr IV Ondansetron HCl 0 .STK-MED ONE 03/02 1409 DC .ROUTE Oxybutynin Chloride 5 MG BID 03/02 2100 UNVr PO Potassium Chloride 20 MEQ DAILY 03/03 0900 UNVr PO Assessment/Plan Assessment/Plan This 52 year old female with hx htn, gerd, gout, hypothyroidism, is POD#0 s/p right ankle arthroscopically assisted ankle arthrodesis for post-traumatic arthritis right ankle, being placed in observation status due to ongoing nausea and uncontrolled pain advance diet as tolerated continue iv fluids until tolerating clears try vicodin / morphine prn pain control resume home meds, including asa 81mg daily PT eval - nwb, crutch training likely d/c home tomorrow once tolerating diet an pain controlled will d/w Dr. Asencio Core Measures Venous Thromboembolism VTE Risk Factors Surgery No Mechanical VTE Prophylaxis d/t N/A MechProphylax Ordered No VTE Pharm Prophylaxis d/t NA PharmProphylax ordered
[2018-03-02 18:15] VITALS: BP 144/80
[2018-03-02 22:19] VITALS: BP 132/82
[2018-03-03 07:01] VITALS: BP 135/77
--- NOTE | 2018-03-03 07:43 | PN- Orthopedic ---
Subjective Subjective: Patient reports nausea resolved. Reports pain radiating to her hip this morning. She offers no other complaints. She is eager to go home. She states she has crutches at home. Objective Vital Signs and I&Os Vital Signs Date Time Temp Pulse Resp B/P B/P Pulse O2 O2 Flow FiO2 Mean Ox Delivery Rate 03/03 0701 98.0 93 20 135/77 95 03/02 2219 98.1 98 20 132/82 93 Room Air 03/02 1815 97.6 93 18 144/80 97 Nasal 2.0L Cannula Intake & Output 03/03 0800 03/03 0000 03/02 1600 03/02 0803/02 0000 03/01 1600 Intake Total 480 480 Output Total Balance 480 480 Intake, Oral 480 480 Patient 185 lb Weight Physical Exam: General - resting comfortably in nad Lungs - CTAB Cardiac -S1S2 noted, RRR Abdomen - soft, nontender Extremities - right lower leg immobilized, nvi, no edema or calf pain Current Medications: Current Medications Sig/Marylu Start time Last Medication Dose Route Stop Time Status Admin Acetaminophen 1,000 MG Q6P PRN 03/02 161 AC N/A 1 UNIT IV Allopurinol 300 MG DAILY 03/03 900 AC PO Aspirin Buffered 81 MG DAILY 03/03 900 AC PO Cefazolin Sodium 2,000 MG ONCE 03/02 0000 DC IV 03/02 2359 Cholecalciferol 2,000 IU DAILY 03/03 900 AC PO Dextrose/Sodium 1,000 ML Q10H 03/02 1630 DC 03/03 Chloride IV 0143 Docusate Sodium 100 MG BID 03/02 2100 AC 03/02 PO 203 Famotidine 20 MG BID 03/02 2100 AC 03/02 PO 203 Fentanyl Citrate 0 .STK-MED ONE 03/02 1017 DC .ROUTE Folic Acid 1 MG DAILY 03/03 09 AC PO Hydrochlorothiazide 12.5 MG DAILY 03/03 900 AC PO Hydrocodone Bitart/ 1 TAB Q4-6 PRN PRN 03/02 161 AC 03/03 Acetaminophen PO 0527 Hydrocodone Bitart/ 2 TAB Q4-6 PRN PRN 03/02 161 AC Acetaminophen PO Hydromorphone HCl 0 .STK-MED ONE 03/02 1321 DC .ROUTE Levothyroxine Sodium 0.088 MG DAILY AC 03/03 0700 AC 03/03 PO 05 Lisinopril 10 MG DAILY 03/03 0900 AC PO Magnesium Oxide 400 MG BID 03/02 2100 AC 03/02 PO 2036 Metoclopramide HCl 0 .STK-MED ONE 03/02 1419 DC .ROUTE Midazolam HCl 0 .STK-MED ONE 03/02 1017 DC .ROUTE Midazolam HCl 0 .STK-MED ONE 03/02 0949 DC .ROUTE Morphine Sulfate 2 MG Q4-6 PRN PRN 03/02 1630 AC IV Ondansetron HCl 4 MG Q6P PRN 03/02 1615 AC 03/02 IV 1803 Ondansetron HCl 0 .STK-MED ONE 03/02 1409 DC .ROUTE Oxybutynin Chloride 5 MG BID 03/02 2100 AC 03/02 PO 2036 Potassium Chloride 20 MEQ DAILY 03/03 09 AC PO Assessment/Plan Assessment/Plan 52 F who is POD 1 s/p arthroscopically right ankle arthrodesis due to post- traumatic right ankle arthritis who was placed in observation status due to ongoing nausea and uncontrolled pain which has since resolved, stable for discharge pending PT eval. Cont reg diet, d/c IVF Pain regimen prn Home meds on board, including asa 81mg daily PT eval - nwb, crutch training D/c today pending PT eval No labs today indicated Will d/w Dr. Asencio Core Measures Venous Thromboembolism VTE Risk Factors Surgery No Mechanical VTE Prophylaxis d/t N/A MechProphylax Ordered No VTE Pharm Prophylaxis d/t NA PharmProphylax ordered
[2018-03-03 10:03] VITALS: BP 118/76
[2018-03-03] MEDS ORDERED: VICODIN 5-3001 EACH PO (11:24)
[2018-03-03] MEDS ORDERED: DULCOLAX STOOL100 MG PO (11:24)
--- NOTE | 2018-03-03 14:04 | RADIOLOGY REPORT ---
EXAMINATION: Intraoperative fluoroscopy CLINICAL INFORMATION: Right ankle fusion COMPARISON: None. TECHNIQUE: Intraoperative fluoroscopy was provided for use by Dr. Asencio. A total of 8 images were saved to PACS. A radiologist was not present during imaging. TOTAL FLUOROSCOPIC TIME: 1.8 minutes FINDINGS\E\IMPRESSION: Intraoperative fluoroscopy provided for use by Dr. Asencio. Please see operative note for detailed findings.
== END 2018-03-03 12:43 ==
LOC: STS 00:51 → PACUH 15:44 → ENRESERV 16:58 → 2NB 17:35 → ENPENDDIS 03-03 07:53 → ENTRNSPT 03-03 12:34 → 2NB 03-03 12:43 → EDTRNSPT 03-03 12:46 → EDTRNSPTSTS 03-03 12:46 → CMPTRNSPT 03-03 12:58
DX: M19.171 Post-traumatic osteoarthritis, right ankle and foot (principal); T14.90XS Injury, unspecified, sequela; G35 Multiple sclerosis; I10 Essential (primary) hypertension; E03.9 Hypothyroidism, unspecified; M10.9 Gout, unspecified
CPT/HCPCS: 6040; 76000; 96374; 96375; 97116-GP; 97161-GP; C1713; C9290; G0378; J0131; J0690; J2250; J2405; J2765; J3490; J7042